=== PATIENT | female | born 1995 | race Caucasian/White ===

== ENCOUNTER 2018-10-22 10:01 | Emergency (ER) | payer MEDICAID ==
[~2018-10-22] VITALS: Ht 160 cm; Wt 58.3 kg
[2018-10-22 10:04] VITALS: Ht 160 cm; Wt 58.3 kg
--- NOTE | 2018-10-22 10:34 | ERD ---
ER Documentation Chief Complaint Chief Complaint ingrown toe nails , 10 weeks preg HPI 22-year-old female, currently with a EGA 10 weeks, presents to the emergency department, complaining of progressive worsening of bilateral toenail pain, associated with local erythema, edema and purulent discharge. The patient has had problems with ingrown toenails for the last 5 years, she has had multiple procedures done in the past including complete nail avulsion. Currently, she denies any fever, no chills. No medications taken at this time. ROS All systems reviewed and are negative except as per history of present illness. Medications Home Meds Active Scripts Cephalexin* (Keflex*) 500 Mg Capsule, 500 MG PO QID for infection for 5 Days, CAP Prov:BETH GUPTA 10/24/18 Acetaminophen* (Tylenol*) 325 Mg Tablet, 1 TAB PO Q6 PRN for PAIN AND OR ELEVATED TEMP, #20 TAB Prov:BETH GUPTA 10/24/18 Acetaminophen* (Tylenol*) 325 Mg Tablet, 1 TAB PO Q6 PRN for PAIN AND OR ELEVATED TEMP, #20 TAB Prov:SHANA SOLOMON MD 10/22/18 Allergies Allergies: Coded Allergies: No Known Allergy (Unverified , 10/24/18) PMhx/Soc Medical and Surgical Hx: pt denies Medical Hx, pt denies Surgical Hx Hx Alcohol Use: No Hx Substance Use: No Hx Tobacco Use: No Smoking Status: Never smoker Physical Exam Vitals Vital Signs Date Temp Pulse Resp B/P (MAP) Pulse Ox O2 O2 Flow FiO2 Time Delivery Rate 10/22/18 98.2 72 16 128/74 100 Room Air 12:52 (92) 10/22/18 98.4 72 16 105/54 100 10:04 (71) Physical Exam Const: No acute distress Head: Atraumatic Eyes: Normal Conjunctiva ENT: Normal External Ears, Nose and Mouth. Neck: Full range of motion. No meningismus. Resp: Clear to auscultation bilaterally Cardio: Regular rate and rhythm, no murmurs Abd: Soft, non tender, non distended. Normal bowel sounds Skin: No petechiae or rashes Back: No midline or flank tenderness Ext: Bilateral great toenails with significant lateral and medial nail fold erythema, edema and discharge. Neur: Awake and alert Psych: Normal Mood and Affect Results 24 hrs Current Medications Medications Dose Sig/Caryn Start Time Status Last (Trade) Ordered Route PRN Stop Time Admin Dose Reason Admin Lidocaine 20 ml ONCE ONCE 10/22/18 DC (Xylocaine INJ 11:00 2% (Mdv) 20 10/22/18 11:01 ml) Bupivacaine 30 ml ONCE ONCE 10/22/18 DC HCl INJ 11:00 (Marcaine 10/22/18 11:01 0.25% (Mpf) 30 ml) Silver 4 stick ONCE ONCE 10/22/18 DC Nitrate TOP 11:00 (Silver 10/22/18 11:01 Nitrate Swabs) Procedures/MDM Differential diagnoses include paronychia, cellulitis, diabetic ulcer, osteomyelitis. Low suspicion for acute or chronic systemic process. Risks and benefits of the procedure were discussed with patient including pain, recurrence of ingrown toenail, infection. The patient provides verbal consent. Ingrown toenail removal procedure Location: Right great toenail Technique: Patient in supine position, toe prepped with povidone-iodine solution. A standard digital block performed with 1 percent lidocaine (without epinephrine) achieving adequate anesthesia. Iris scissors slid under the cuticle the nail plate from the proximal nail fold. Bandage scissors used to cut the distal end of the nail straight back beneath the proximal nail fold, lateral pointing spicule removed, excessive lateral granulation tissue removed with silver nitrate. Adequate homeostasis, bandage with antibiotic ointment applied. Complications: None. Neurovascularly intact post procedure. Ingrown toenail removal procedure Location: Left great toenail Technique: Patient in supine position, toe prepped with povidone-iodine solution. A standard digital block performed with 1 percent lidocaine (without epinephrine) achieving adequate anesthesia. Iris scissors slid under the cuticle the nail plate from the proximal nail fold. Bandage scissors used to cut the distal end of the nail straight back beneath the proximal nail fold, lateral pointing spicule removed, excessive lateral granulation tissue removed with silver nitrate. Adequate homeostasis, bandage with antibiotic ointment applied. Complications: None. Neurovascularly intact post procedure. 48 hour wound check recommended. Scar minimization instructions given. Some side effects of prescribed medications (headache, rash, nausea, vomiting, diarrhea, drowsiness, habituation, bleeding, hypertension, interactions with other medications) were reviewed. If the symptoms get worse return to the Emergency Department immediately. Instructions explained and given directly by me to the patient with acknowledgment and demonstrated understanding. Disclaimer: Inadvertent spelling and grammatical errors are likely due to EHR/dictation software use and do not reflect on the overall quality of patient care. Also, please note that the electronic time recorded on this note does not necessarily reflect the actual time of the patient encounter. Departure Diagnosis: Primary Impression: Ingrown toenail of left foot with infection Additional Impression: Ingrown toenail of right foot with infection Condition: Stable Additional Instructions: Muchas james por [facility] para snowden servicio. Esperamos que en snowden visita a la james de emergencia snowden problema medico haya sido solucionado y que se sienta mucho mejor. Para estar seguros que snowden mejoria sigue en proceso, le pedimos el favor de hacer donnie bin de seguimiento medico con snowden doctor primario en los proximos 2-4 wade. Lleve con usted estos documentos y las medicinas recetadas. Si heidi sintomas empeoran, NO SE ESPERE, por favor regrese a james de emergencia INMEDIATAMENTE. En master que usted no tenga un mdico de atencin primaria: Llame al mdico o clnica comunitaria de referencia que aparece abajo jasmin las horas de consultorio para hacer donnie bin para que le vean. CLINICAS: [facility] [phone] [facility] [phone] [facility] [phone] [facility] [phone] [facility] [phone] [address] [facility]. [phone] MD Oct 22, 2018 10:34
[2018-10-22] MEDS ORDERED: LIDOCAINE 2% (MDV) 20 ML INJ INJ ONE (11:00)
[2018-10-22] MEDS ORDERED: SILVER NITRATE SWAB TOP ONE (11:00)
[2018-10-22] MEDS ORDERED: BUPIVACAINE 0.25% (MPF) 30 ML INJ INJ ONE (11:00)
[2018-10-22] MEDS ORDERED: ACET325T33 PO (12:22)
[2018-10-22 12:52] VITALS: BP 128/74; PULSE 72; RESP 16
== END 2018-10-22 12:53 | disposition home or self-care (01) ==
LOC: FTE 10:01
DX: O99.711 Diseases of the skin and subcutaneous tissue complicating pregnancy, first trimester (principal); L60.0 Ingrowing nail; L08.9 Local infection of the skin and subcutaneous tissue, unspecified; Z3A.10 10 weeks gestation of pregnancy
CPT/HCPCS: 11765; Z7502; Z7610

== ENCOUNTER 2018-10-24 11:08 | Emergency (ER) | payer MEDICAID ==
[~2018-10-24] VITALS: Ht 160 cm; Wt 58.1 kg
[~2018-10-24 11:08] MED LIST: ACET325T33 PO
[2018-10-24 11:13] VITALS: BP 124/62; PULSE 101; Ht 160 cm; Wt 58.1 kg
[2018-10-24] MEDS ORDERED: ACET325T33 PO (12:53)
[2018-10-24] MEDS ORDERED: CEPH-443 PO (12:53)
--- NOTE | 2018-10-24 13:02 | ERD ---
ER Documentation Chief Complaint Chief Complaint wound check bilateral great toes HPI 23-year-old female presents 2 days post bilateral toenail removal for wound check. Patient states that she has been having some pain but denies any fevers. Patient has not changed bandages since procedure. Patient currently not taking any pain medication or antibiotics. Denies past medical history. ROS All systems reviewed and are negative except as per history of present illness. Medications Home Meds Active Scripts Cephalexin* (Keflex*) 500 Mg Capsule, 500 MG PO QID for infection for 5 Days, CAP Prov:BETH GUPTA 10/24/18 Acetaminophen* (Tylenol*) 325 Mg Tablet, 1 TAB PO Q6 PRN for PAIN AND OR ELEVATED TEMP, #20 TAB Prov:BETH GUPTA 10/24/18 Acetaminophen* (Tylenol*) 325 Mg Tablet, 1 TAB PO Q6 PRN for PAIN AND OR ELEVATED TEMP, #20 TAB Prov:SHANA SOLOMON MD 10/22/18 Allergies Allergies: Coded Allergies: No Known Allergy (Unverified , 10/24/18) PMhx/Soc Medical and Surgical Hx: pt denies Medical Hx, pt denies Surgical Hx Hx Alcohol Use: No Hx Substance Use: No Hx Tobacco Use: No Physical Exam Vitals Vital Signs Date Temp Pulse Resp B/P (MAP) Pulse Ox O2 O2 Flow FiO2 Time Delivery Rate 10/24/18 97.3 101 18 124/62 99 11:13 (82) Physical Exam Const: No acute distress Neck: Full range of motion. No meningismus. Resp: Clear to auscultation bilaterally Ext: Toes bilaterally show some bleeding with mild discharge. Some mild erythema and mild edema to the distal portion of the first toes bilaterally. Neur: Awake and alert Psych: Normal Mood and Affect Procedures/MDM 23-year-old female presents 2 days post bilateral toenail removal for wound check. Patient states that she has been having some pain but denies any fevers. Patient has not changed bandages since procedure. Patient currently not taking any pain medication or antibiotics. Denies past medical history. First toenails bilaterally showed possible signs of early infection therefore Keflex was prescribed. Wounds were irrigated and cleansed and fresh dressing applied. Patient states that she has not been taking any pain medications I prescribed he r tylenol. Patient discharged with strict ER precautions. Patient advised to follow up with PMD. All questions answered at discharge. Departure Diagnosis: Primary Impression: Encounter for wound re-check Condition: Stable Patient Instructions: Wound Care Referrals: [facility] YOU HAVE RECEIVED A MEDICAL SCREENING EXAM AND THE RESULTS INDICATE THAT YOU DO NOT HAVE A CONDITION THAT REQUIRES URGENT TREATMENT IN THE EMERGENCY DEPARTMENT. FURTHER EVALUATION AND TREATMENT OF YOUR CONDITION CAN WAIT UNTIL YOU ARE SEEN IN YOUR DOCTORS OFFICE WITHIN THE NEXT 1-2 DAYS. IT IS YOUR RESPONSIBILITY TO MAKE AN APPOINTMENT FOR FOLOW-UP CARE. IF YOU HAVE A PRIMARY DOCTOR --you should call your primary doctor and schedule an appointment IF YOU DO NOT HAVE A PRIMARY DOCTOR YOU CAN CALL OUR PHYSICIAN REFERRAL HOTLINE AT IF YOU CAN NOT AFFORD TO SEE A PHYSICIAN YOU CAN CHOSE FROM THE FOLLOWING [facility] [address] [facility] [address] [facility] [address] [facility] [address] [facility] [address] [facility]. [facility] [address] Additional Instructions: FOLLOW UP WITH YOUR PRIMARY CARE PHYSICIAN TOMORROW.Return to this facility if you are not improving as expected. BETH GUPTA Oct 24, 2018 13:02
[2018-10-24 13:17] VITALS: RESP 18
== END 2018-10-24 13:17 | disposition home or self-care (01) ==
LOC: FTE 11:08
DX: Z48.01 Encounter for change or removal of surgical wound dressing (principal)
CPT/HCPCS: 99283